=== PATIENT | male | born 1975 | race Caucasian/White ===

== ENCOUNTER 2018-08-21 06:38 | Day surgery (SDC) | payer BC ==
[2018-08-21] MEDS ORDERED: CEFAZOLIN 1 GM INJ ×2 (07:00→08:55)
[2018-08-21] MEDS ORDERED: DESFLURANE 15 MIN (07:00)
[2018-08-21] MEDS ORDERED: CEFAZOLIN 2 GM/50 ML (PMX) 50 ML IVPB (08:30)
[2018-08-21] MEDS ORDERED: MIDAZOLAM 1 MG/ML 2 ML INJ (08:55)
[2018-08-21] MEDS ORDERED: ONDANSETRON 4 MG INJ (08:55)
[2018-08-21] MEDS ORDERED: PROPOFOL 0 ML (08:55)
[2018-08-21] MEDS ORDERED: BUPIVACAINE 0.5% (SDV) 30 ML INJ (09:50)
[2018-08-21] MEDS: BUPIVACAINE 0.5% (SDV) 30 ML INJ INJ (09:55)
[2018-08-21] MEDS ORDERED: NEOMYC/POLYMYX/BACIT 30 GM OINT (10:09)
[2018-08-21] MEDS ORDERED: PROPOFOL 20 ML (10:13)
[2018-08-21] MEDS ORDERED: FENTAnyl 50 MCG/ML VIAL IV (10:30)
[2018-08-21] MEDS ORDERED: HYDROCODONE/APAP (5/325) TAB PO (10:30)
[2018-08-21] MEDS ORDERED: OXYCODONE/ACETAMINOPHEN (5/325) TAB PO (10:30)
[2018-08-21] MEDS: HYDROmorphONE 1 MG/5 ML IV SYRINGE IV (11:13)
[2018-08-21] MEDS: ONDANSETRON 4 MG INJ IV (11:13)
== END 2018-08-21 12:45 | disposition home or self-care (01) ==
LOC: SDS 06:38
DX: N43.3 Hydrocele, unspecified (principal); I10 Essential (primary) hypertension; Z87.891 Personal history of nicotine dependence; Z79.82 Long term (current) use of aspirin
CPT/HCPCS: 55500; 88302